=== PATIENT | female | born 1970 | race Caucasian/White ===

== ENCOUNTER 2021-11-24 00:32 | Emergency (ER) | payer OTHER ==
[~2021-11-24] VITALS: Ht 165 cm; Wt 136.0 kg
[2021-11-24 00:41] VITALS: BP 154/92
--- NOTE | 2021-11-24 00:50 | ED General ---
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 She has no hx of trauma. No chest pain or known CAD/[place] but she smokes and has untreated HTN and her father had [place]. She takes no regular medicine and is reportedly allergic to morphine. The pain is not clearly related to body position or activity. She tried sleeping it off but it didn't help. Severity: Moderate Allergies and Home Medications Allergies Coded Allergies: morphine (Unverified Allergy, Mild, 11/24/21) Patient Home Medication List Home Medication List Reviewed: Yes Review of Systems Review of Systems Constitutional: No diaphoresis, No fever EENTM: no symptoms reported Respiratory: No cough; short of breath; No stridor, No wheezing Gastrointestinal: No abdominal pain, No jaundice; nausea; No vomiting Genitourinary: no symptoms reported Musculoskeletal: see HPI; No back pain, No muscle stiffness, No muscle weakness, No neck pain Skin: no symptoms reported Psychiatric/Neurological: No Symptoms Reported Hematologic/Lymphatic: No Symptoms Reported Past Mfrfqeq-Zpwgcw-Vyrsat Hx Patient Social History Tobacco Use?: Yes Tobacco type used: Cigarettes Smoking Status: Current Everyday Smoker Substance use?: No Alcohol Use?: Yes Alcohol type: Beer Alcohol Frequency: Once in a while Pt feels they are or have been: No Immunizations Up To Date First/Initial COVID19 Vaccinat: unknown date Second COVID19 Vaccination Brayden: did not receive Past Medical History Surgery/Hospitalization HX: gallbladder Surgeries: Yes Gallbladder Physical Exam Vital Signs Vital Signs - First Documented 11/24/21 11/24/21 00:41 01:01 Temp 35.5 Pulse 73 Resp 22 B/P (MAP) 154/92 (112) Pulse Ox 98 O2 Delivery Room Air FiO2 97 Capillary Refill : Height, Weight, BMI Height: '" Weight: lbs. oz. kg; BMI Method: General Appearance: No Apparent Distress Eyes: Bilateral Eye Normal Inspection HEENT: Moist Mucous Membranes Neck: Normal Inspection, Non Tender, Supple Respiratory: Lungs Clear, Normal Breath Sounds, No Accessory Muscle Use, No Respiratory Distress Cardiovascular: Regular Rate, Rhythm, No Murmur, Normal Peripheral Pulses Gastrointestinal: Non Tender, Soft Extremity: Normal Capillary Refill, Normal Inspection Neurologic/Psychiatric: Alert, Oriented x3 Skin: Normal Color, Warm/Dry Progress/Results/Core Measures Suspected Sepsis SIRS Temperature: Pulse: Respiratory Rate: Laboratory Tests 11/24/21 00:38: White Blood Count 11.3H Blood Pressure / Mean: Laboratory Tests 11/24/21 00:38: Platelet Count 249 11/24/21 00:54: Creatinine 0.78, INR Comment 0.9, Total Bilirubin 0.4 Results/Orders Lab Results Laboratory Tests Test 11/24/21 00:38 11/24/21 00:54 11/24/21 02:28 Range/Units White Blood Count 11.3 H 4.3-11.0 10^3/uL Red Blood Count 4.57 3.80-5.11 10^6/uL Hemoglobin 14.2 11.5-16.0 g/dL Hematocrit 42 35-52 % Mean Corpuscular Volume 92 80-99 fL Mean Corpuscular Hemoglobin 31 25-34 pg Mean Corpuscular Hemoglobin Concent 34 32-36 g/dL Red Cell Distribution Width 15.2 H 10.0-14.5 % Platelet Count 249 130-400 10^3/uL Mean Platelet Volume 9.1 9.0-12.2 fL Immature Granulocyte % (Auto) 0 % Neutrophils (%) (Auto) 67 42-75 % Lymphocytes (%) (Auto) 21 12-44 % Monocytes (%) (Auto) 7 0-12 % Eosinophils (%) (Auto) 4 0-10 % Basophils (%) (Auto) 0 0-10 % Neutrophils # (Auto) 7.6 1.8-7.8 10^3/uL Lymphocytes # (Auto) 2.4 1.0-4.0 10^3/uL Monocytes # (Auto) 0.8 0.0-1.0 10^3/uL Eosinophils # (Auto) 0.4 H 0.0-0.3 10^3/uL Basophils # (Auto) 0.1 0.0-0.1 10^3/uL Immature Granulocyte # (Auto) 0.1 0.0-0.1 10^3/uL Prothrombin Time 12.3 12.2-14.7 SEC INR Comment 0.9 0.8-1.4 Sodium Level 138 135-145 MMOL/L Potassium Level 4.4 3.6-5.0 MMOL/L Chloride Level 101 98-107 MMOL/L Carbon Dioxide Level 26 21-32 MMOL/L Anion Gap 11 5-14 MMOL/L Blood Urea Nitrogen 21 H 7-18 MG/DL Creatinine 0.78 0.60-1.30 MG/DL Estimat Glomerular Filtration Rate 92 BUN/Creatinine Ratio 27 Glucose Level 120 H 70-105 MG/DL Calcium Level 9.6 8.5-10.1 MG/DL Corrected Calcium 9.5 8.5-10.1 MG/DL Total Bilirubin 0.4 0.1-1.0 MG/DL Aspartate Amino Transf (AST/SGOT) 16 5-34 U/L Alanine Aminotransferase (ALT/SGPT) 17 0-55 U/L Alkaline Phosphatase 80 40-136 U/L Troponin I < 0.30 < 0.30 <0.30 NG/ML Total Protein 7.5 6.4-8.2 GM/DL Albumin 4.1 3.2-4.5 GM/DL My Orders Orders - SALLY RUSSO MD Cbc With Automated Diff (11/24/21 00:38) Chest 1 View Ap/Pa Only (11/24/21 00:38) Ekg Tracing (11/24/21 00:38) Comprehensive Metabolic Panel (11/24/21 00:38) Protime With Inr (11/24/21 00:38) O2 (11/24/21 00:38) Monitor-Rhythm Ecg Trace Only (11/24/21 00:38) Ed Iv/Invasive Line Start (11/24/21 00:38) Troponin I Fs (11/24/21 00:38) Aspirin Chewable Tablet (Baby Aspirin Ch (11/24/21 01:15) Nitroglycerin Ointment (Nitrobid Ointme (11/24/21 01:15) Troponin I Fs (11/24/21 02:21) Medications Given in ED Current Medications Medications Dose Ordered Sig/Gayatri Route Start Time Stop Time Status Last Admin Dose Admin Aspirin 324 mg ONCE ONCE PO 11/24/21 01:15 11/24/21 01:16 DC 11/24/21 01:16 324 MG Nitroglycerin 1 inch ONCE ONCE TOP 11/24/21 01:15 11/24/21 01:16 DC 11/24/21 01:16 1 INCH Vital Signs/I&O 11/24/21 11/24/21 11/24/21 11/24/21 00:41 01:01 01:17 01:49 Temp 35.5 Pulse 73 66 65 Resp 22 20 20 B/P (MAP) 154/92 (112) 107/64 112/81 Pulse Ox 98 99 98 O2 Delivery Room Air Room Air Room Air Room Air FiO2 97 11/24/21 02:39 Pulse 54 Resp 18 B/P (MAP) 115/76 Pulse Ox 94 O2 Delivery Room Air Capillary Refill : Progress Note : Progress Note Sx significantly better after NTG/ASA; will observe and repeat troponin at 2 hours. Repeat troponin is unchanged. Pain is almost gone. i recommended transfer to [place] for cardiology consultation. After a lengthy discussion of risks and alternatives, she decided to go home and take her chances and seek a stress test through her family doctor by calling Thursday. ECG Initial ECG Impression Date: Nov 24, 2021 Initial ECG Impression Time: 01:02 Initial ECG Rate: 66 Initial ECG Rhythm: Normal Sinus Initial ECG Intervals: Normal Initial ECG Impression: Nonspecific Changes Initial ECG Comparisson: No Previous ECG Available Departure Impression Primary Impression: Shoulder pain, right Disposition: 01 HOME, SELF-CARE Condition: Improved Departure-Patient Inst. Decision time for Depature: 03:08 Referrals: ROQUE MORENO (PCP) Primary Care Physician Patient Instructions: Acute Pain, Adult (DC) Add. Discharge Instructions: As we discussed at length, I am concerned that this shoulder pain MAY be due to your heart. However, there is no conclusive evidence at this time by examination and tests results. I believe the safest course of action is for you to transfer to [place] [facility] to have a heart specialst evaluate you for either a heart cath or stress test to determine you actual risk of heart attack. Your choice is to go home instead and you do so at your own risk since neither of us can know for certain or predict the future. I strongly caution you to quit smoking, take aspirin daily, use nitro as need if pain returns, and return to ER if worse or new symptoms. Also, do not delay in seeking further testing. call your doctor Thursday to arrange prompt follow up care. Please understand that I cannot guarantee your safety. All discharge instructions reviewed with patient and/or family. Voiced understanding. Scripts Nitroglycerin (Nitroglycerin) 0.4 Mg Tab.subl 0.4 MG SL UD PRN for CHEST PAIN for 10 Days, #25 TAB Prov: SALLY RUSSO MD 11/24/21 Aspirin (Aspirin EC) 81 Mg Tablet. 81 MG PO DAILY for 30 Days, TAB Prov: SALLY RUSSO MD 11/24/21 SALLY RUSSO MD Nov 24, 2021 00:50
[2021-11-24 01:02] LABS: BASOPHILS # (AUTO) 0.1 10^3/uL (0.0-0.1); BASOPHILS % (AUTO) 0 % (0-10); EOSINOPHILS # (AUTO) 0.4 10^3/uL (0.0-0.3); EOSINOPHILS % (AUTO) 4 % (0-10); HEMATOCRIT 42 % (35-52); HEMOGLOBIN 14.2 g/dL (11.5-16.0); LYMPHOCYTES # (AUTO) 2.4 10^3/uL (1.0-4.0); LYMPHOCYTES % (AUTO) 21 % (12-44); MEAN CORPUSCULAR HEMOGLOBIN 31 pg (25-34); MEAN CORPUSCULAR HGB CONC 34 g/dL (32-36); MEAN CORPUSCULAR VOLUME 92 fL (80-99); MEAN PLATELET VOLUME 9.1 fL (9.0-12.2); MONOCYTES # (AUTO) 0.8 10^3/uL (0.0-1.0); MONOCYTES % (AUTO) 7 % (0-12); NEUTROPHILS # (AUTO) 7.6 10^3/uL (1.8-7.8); NEUTROPHILS % (AUTO) 67 % (42-75); PLATELET COUNT 249 10^3/uL (130-400); WHITE BLOOD COUNT 11.3 10^3/uL (4.3-11.0)
[2021-11-24 01:14] LABS: INR 0.9 (0.8-1.4); PROTHROMBIN TIME PATIENT 12.3 SEC (12.2-14.7)
[2021-11-24] MEDS ORDERED: NITROGLYCERIN 2% OINT 1 GM UNIT DOSE PACKET TOP ONE (01:15)
[2021-11-24] MEDS ORDERED: ASPIRIN 81 MG CHEW (CHILDREN'S ASA) PO ONE (01:15)
[2021-11-24 01:24] LABS: BILIRUBIN,TOTAL 0.4 MG/DL (0.1-1.0); CALCIUM 9.6 MG/DL (8.5-10.1); CREATININE SERUM 0.78 MG/DL (0.60-1.30); POTASSIUM 4.4 MMOL/L (3.6-5.0)
[2021-11-24 01:25] LABS: ALBUMIN 4.1 GM/DL (3.2-4.5); TOTAL PROTEIN 7.5 GM/DL (6.4-8.2)
[2021-11-24] MEDS ORDERED: NITR0.4T39 SL (03:15)
[2021-11-24] MEDS ORDERED: ASPI-1238 PO (03:15)
--- NOTE | 2021-11-24 09:01 | Diagnostic Imaging Report ---
EXAM: CHEST 1 VIEW AP/PA ONLY INDICATION: Chest pain. COMPARISON: None. FINDINGS: Normal heart size and central pulmonary vascularity. No focal pulmonary opacity. No pleural effusion or pneumothorax. No acute osseous findings. IMPRESSION: No acute cardiopulmonary findings. Dictated by: Dictated on workstation # [id number]
== END 2021-11-24 03:20 | disposition home or self-care (01) ==
LOC: ER FS 00:34
DX: M25.511 Pain in right shoulder (principal); F17.210 Nicotine dependence, cigarettes, uncomplicated
CPT/HCPCS: 36415; 71045; 80053; 84484; 85025; 85610; 93005; 93041